=== PATIENT | male | born 1955 | race Caucasian/White ===

== ENCOUNTER 2020-03-14 18:46 | Emergency (ER) | payer BC, SELFPAY ==
--- NOTE | 2020-03-14 | ECG_ITS ---
Test Reason : CHEST PRESSURE Blood Pressure : / mmHG Vent. Rate : 073 BPM Atrial Rate : 073 BPM P-R Int : 164 ms QRS Dur : 098 ms QT Int : 382 ms P-R-T Axes : 035 -15 020 degrees QTc Int : 420 ms Normal sinus rhythm Inferior infarct (cited on or before 26-AUG-2019) Abnormal ECG When compared with ECG of 26-AUG-2019 09:59, Premature ventricular complexes are no longer Present Referred By: Generic ED Physician Electronically Signed By:Jignesh Dunn
[2020-03-14 19:20] VITALS: BP 122/60; PULSE 90; RESP 21; TEMP 37.2; O2SAT 93; BMI 38.7
[2020-03-14 19:30] VITALS: BP 120/60; PULSE 90; RESP 20; TEMP 37.2; O2SAT 93; BMI 43.7
[2020-03-14 20:34] VITALS: PULSE 74; RESP 22; O2SAT 95
[2020-03-14 20:34] LABS: Imm Gran Abs Auto 0.02 X10*3/uL (0.00-0.03); Imm Gran Pct Auto 0.3 % (0.0-0.4); Mean Corpuscular Volume 96.2 fL (80-98); PLT CLUMP 1; Red Cell Distribution Width 13.2 % (11.0-16.0); SCAN SMEAR FLAG 1
[2020-03-14 20:36] LABS: Basophils Percent Auto 0.1 % (0-2); Hematocrit 48.2 % (42-52); Hemoglobin 16.3 g/dl (14.0-18.0); Lymphocytes Absolute Auto 0.8 X10*3/uL (1.2-4.9); Lymphocytes Percent Auto 12.1 % (20-40); MANUAL DIFF FLAG NO; Mean Corpuscular HGB Conc 33.8 g/dl (31.0-36.0); Mean Corpuscular Hemoglobin 32.5 pg (27.0-33.0); Mean Platelet Volume 10.8 fL (9.4-12.4); Monocytes Absolute Auto 0.5 X10*3/uL (0.1-1.2); Neutrophils Absolute Auto 5.4 X10*3/uL (2.0-8.3); Neutrophils Percent Auto 80.5 % (45-73); Platelet Count 134 X10*3/uL (160-400); Red Blood Count 5.01 X10*6/uL (4.60-5.80); White Blood Count 6.7 X10*3/uL (4.8-10.8)
--- NOTE | 2020-03-14 20:36 | PC.NURSE ---
pt placed on tele, nsr 74. Iv access obtained to right outer forarm, labs drawn and sent, provider in to bedside for primary eval. Plan for chest ct. Pt resting quietly at this time, SUNI.
[2020-03-14 21:03] LABS: Alanine Aminotransferase 35 U/L (0-40); Albumin Level 4.3 g/dL (3.5-5.0); Alkaline Phosphatase 86 U/L (39-117); Anion Gap 17 (12-20); Aspartate Amino Transferase 47 U/L (5-37); Bilirubin Total 0.8 mg/dL (0.0-1.0); Blood Urea Nitrogen 31 mg/dL (9-16); Carbon Dioxide 30 mmol/L (22-29); Chloride 94 mmol/L (96-108); Creatinine Clr Calc Pharmacy 123.5; Estimated Glomerular Filt Rate > 60; Glucose Random 87 mg/dL (60-115); Potassium 4.4 mmol/l (3.3-5.1); Sodium 137 mmol/L (135-145); Total Protein 7.2 g/dL (6.5-8.0)
--- NOTE | 2020-03-14 21:05 | ED.SOB ---
HPI - SOB/Dyspnea General Chief Complaint: Dyspnea Stated Complaint: covid symptoms Time Seen by Provider: 03/14/20 19:33 Source: patient Mode of arrival: ambulatory Limitations: no limitations History of Present Illness HPI Narrative: 65-year-old male with past medical history of hypertension, CKD, adrenal adenoma, bilateral knee replacements, hip replacement presents with 9 days of upper respiratory symptoms. States that he feels unwell, has had shortness of breath, cough, fatigue and intermittent fevers and chills. He does not report any chest pain or pressure, but states that when he exerts himself he has palpitations. He denies abdominal abdominal, dysuria, hematuria, and edema. Related Data Home Medications Medication Instructions Recorded Confirmed atenolol 1 tab PO DAILY 03/14/20 03/14/20 cholecalciferol (vitamin D3) 1 tab PO DAILY 03/14/20 03/14/20 ezetimibe 1 tab PO DAILY 03/14/20 03/14/20 hydrochlorothiazide 1 tab PO DAILY 03/14/20 03/14/20 lisinopril 1 tab PO DAILY 03/14/20 03/14/20 pravastatin 1 tab PO DAILY 03/14/20 03/14/20 Previous Rx's Medication Instructions Recorded doxycycline monohydrate 100 mg PO BID 10 Days #20 tab 03/14/20 Allergies Allergy/AdvReac Type Severity Reaction Status Date / Time amoxicillin [AMOXICILLIN] Allergy Unknown UNKNOWN Unverified 03/14/20 19:37 cefazolin [CEFAZOLIN] Allergy Unknown UNKNOWN Unverified 03/14/20 19:37 celecoxib [From CELEBREX] Allergy Unknown UNKNOWN Unverified 03/14/20 19:37 Cephalosporins Allergy Unknown UNKNOWN Unverified 03/14/20 19:37 [CEPHALOSPORINS] enoxaparin [From LOVENOX] Allergy Unknown UNKNOWN Unverified 03/14/20 19:37 rosuvastatin [From CRESTOR] Allergy Unknown UNKNOWN Unverified 03/14/20 19:37 Review of Systems Review of Systems: Constitutional: positive Fever, positive Chills, positive fatigue, positive Malaise ENT/Mouth: No sore throat, no runny nose Eyes: No Discharge Cardiovascular: No Chest Pain, positive SOB Respiratory: Positive Cough, No Sputum, No Wheezing, No Smoke Exposure, No Dyspnea Gastrointestinal: No Nausea, No Vomiting, No Diarrhea Genitourinary: no irregular bleeding, No Dysuria, No Urinary Frequency, No Hematuria, No Urinary Incontinence, No Urgency, No Flank Pain, Musculoskeletal: positive Myalgia Skin: No rash Neuro: No Headache PMF Past Medical History Attestation statement: The following information was validated with the patient. Source: old records reviewed Medical History (Updated 03/14/20 @ 23:45 by Mellisa Ramirez NP) Adrenal adenoma Cardiovascular disease CKD (chronic kidney disease) stage 2, GFR 60-89 ml/min FH: total knee replacement Hypertension Surgical History History of hip replacement Social History Social History Smoking Status: Former smoker Use of substances other than those prescribed or required for medical reasons: No Advance Directives: No Physical Exam Vital Signs: Vital Signs: Last Vital Signs Temp 98.8 F 03/14/20 22:00 Pulse 79 03/14/20 22:00 Resp 16 03/14/20 22:00 BP 118/60 03/14/20 22:00 Pulse Ox 97 03/14/20 22:00 Body Mass Index 43.7 Appearance: Alert. Oriented X3. Mild distress. Eyes: Pupils equal, round and reactive to light. ENT: Pharynx normal. Neck: Normal inspection. Neck supple. CVS: Normal heart rate and rhythm. Pulses normal. Respiratory: No respiratory distress. Lung sounds expiratory wheezing diminished at the bases Abdomen: Soft and nontender. Skin: Skin warm and dry. Normal skin color. Normal skin turgor. Extremities: No lower extremity edema. Neuro: No motor deficit. No sensory deficit. Course Course Course Narrative: 65-year-old male presents with upper respiratory symptoms for approximately 9 days. Plan of care is for CT scan of the chest, CBC, Chem 7, EKG and COVID test First EKG elevated at 21.8 will repeat 2nd in 3 hours. EKG is normal sinus no indication of ST depression or elevation. BUN elevated at 31, patient does state to have chronic kidney disease with elevated BUN and unfortunately we do not have prior lab values. We will not be resuscitating with fluid at this time for suspected of viral illness. At 11:00 p.m. COVID test is positive, CT scan of the chest is positive for bilateral infiltrates consistent with COVID-19. Repeat troponin is 16.2. Highly unlikely that this is ACS. Heart rate 79, O2 sat remains above 95% on room air, low suspicion for PE at this time. Plan of care to discharge with doxycycline and COVID-19 restriction. Patient verbalized understanding of and agrees to plan of care discharge home. MDM - SOB/Dyspnea Differential Diagnosis Differential diagnosis: Likely acute exacerbation of chronic obstructive airways disease and pneumonia Medical Records Attestation: I reviewed the patient's medical records. Lab Data Attestation: I reviewed the patient's lab results. Result diagrams: 03/14/20 20:27 03/14/20 20: Labs: Lab Results 03/14/20 03/14/20 03/14/20 Range/Units 20:27 20: 20: WBC 6.7 (4.8-10.8) X10*3/uL RBC 5.01 (4.60-5.80) X10*6/uL Hgb 16.3 (14.0-18.0) g/dl Hct 48.2 (42-52) % MCV 96.2 (80-98) fL MCH 32.5 (27.0-33.0) pg MCHC 33.8 (31.0-36.0) g/dl RDW 13.2 (11.0-16.0) % Plt Count 134 L (160-400) X10*3/uL MPV 10.8 (9.4-12.4) fL Immature Gran % (Auto) 0.3 (0.0-0.4) % Neut % (Auto) 80.5 H (45-73) % Lymph % (Auto) 12.1 L (20-40) % [place] % (Auto) 7.0 (2-11) % Eos % (Auto) 0.0 (0-4) % Baso % (Auto) 0.1 (0-2) % Lymph # (Auto) 0.8 L (1.2-4.9) X10*3/uL [place] # (Auto) 0.5 (0.1-1.2) X10*3/uL Eos # (Auto) 0.0 (0.0-0.4) X10*3/uL Baso # (Auto) 0.0 (0.0-0.2) X10*3/uL Abs Immat Gran (auto) 0.02 (0.00-0.03) X10*3/uL Absolute Neuts (auto) 5.4 (2.0-8.3) X10*3/uL Absolute Nucleated RBC 0.000 (0.0-0.012) X10*3/uL Nucleated RBC % (auto) 0.0 (0.0-0.2) /100WBC Hold Blue Top SEE NOTE Sodium 137 (135-145) mmol/L Potassium 4.4 (3.3-5.1) mmol/l Chloride 94 L (96-108) mmol/L Carbon Dioxide 30 H (22-29) mmol/L Anion Gap 17 (12-20) BUN 31 H (9-16) mg/dL Creatinine 0.95 (0.5-1.4) mg/dL Estim Creat Clear Calc 123.5 Estimated GFR > 60 Random Glucose 87 (60-115) mg/dL Calcium 9.0 (8.4-10.2) mg/dL Total Bilirubin 0.8 (0.0-1.0) mg/dL AST 47 H (5-37) U/L ALT 35 (0-40) U/L Alkaline Phosphatase 86 (39-117) U/L Troponin I High Sens (<3.5-35.0) ng/L Total Protein 7.2 (6.5-8.0) g/dL Albumin 4.3 (3.5-5.0) g/dL Coronavirus (PCR) (Negative) Influenza Type A (PCR) (Negative) Influenza Type B (PCR) (Negative) RSV RNA Qual (PCR) (Negative) 03/14/20 03/14/20 Range/Units 20:27 22:12 WBC (4.8-10.8) X10*3/uL RBC (4.60-5.80) X10*6/uL Hgb (14.0-18.0) g/dl Hct (42-52) % MCV (80-98) fL MCH (27.0-33.0) pg MCHC (31.0-36.0) g/dl RDW (11.0-16.0) % Plt Count (160-400) X10*3/uL MPV (9.4-12.4) fL Immature Gran % (Auto) (0.0-0.4) % Neut % (Auto) (45-73) % Lymph % (Auto) (20-40) % [place] % (Auto) (2-11) % Eos % (Auto) (0-4) % Baso % (Auto) (0-2) % Lymph # (Auto) (1.2-4.9) X10*3/uL [place] # (Auto) (0.1-1.2) X10*3/uL Eos # (Auto) (0.0-0.4) X10*3/uL Baso # (Auto) (0.0-0.2) X10*3/uL Abs Immat Gran (auto) (0.00-0.03) X10*3/uL Absolute Neuts (auto) (2.0-8.3) X10*3/uL Absolute Nucleated RBC (0.0-0.012) X10*3/uL Nucleated RBC % (auto) (0.0-0.2) /100WBC Hold Blue Top Sodium (135-145) mmol/L Potassium (3.3-5.1) mmol/l Chloride (96-108) mmol/L Carbon Dioxide (22-29) mmol/L Anion Gap (12-20) BUN (9-16) mg/dL Creatinine (0.5-1.4) mg/dL Estim Creat Clear Calc Estimated GFR Random Glucose (60-115) mg/dL Calcium (8.4-10.2) mg/dL Total Bilirubin (0.0-1.0) mg/dL AST (5-37) U/L ALT (0-40) U/L Alkaline Phosphatase (39-117) U/L Troponin I High Sens 21.8 (<3.5-35.0) ng/L Total Protein (6.5-8.0) g/dL Albumin (3.5-5.0) g/dL Coronavirus (PCR) POSITIVE A (Negative) Influenza Type A (PCR) NEGATIVE (Negative) Influenza Type B (PCR) NEGATIVE (Negative) RSV RNA Qual (PCR) NEGATIVE (Negative) Imaging Data CT scan - chest: Attestation: I personally reviewed and interpreted this imaging study as follows: Radiologist's impression: EXAMINATION: CT CHEST WITHOUT CONTRAST CLINICAL INFORMATION: Shortness of breath. COMPARISON: None. TECHNIQUE: Contiguous axial thin section helical images of the chest were performed without contrast. The data set was reformatted in the coronal and sagittal planes and reviewed on an independent workstation. DLP: 590 mGy-cm. FINDINGS: The heart is of normal size. There is no pericardial effusion. There is neither mediastinal, hilar nor axillary lymphadenopathy. There are scattered none pathologically enlarged mediastinal lymph nodes. There are no chest wall masses. Review of lung windows demonstrates that there are neither pleural effusions nor pneumothoraces. Throughout both lungs, there is patchy multifocal groundglass opacification. There are no pulmonary parenchymal nodules. Images of the upper abdomen demonstrate that the liver is of normal size and attenuation without focal lesions. A normal right adrenal gland is identified. 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 Bone windows: Neither sclerotic nor lytic bone lesions are identified. CT/CT chest wo con IMPRESSION: Patchy multifocal groundglass opacification present throughout both lungs. The appearance is nonspecific, though could be sales representative trainee of atypical infection, inflammation or vasculitis. Likely left adrenal adenoma. Automated exposure control (Care Dose) Adjustment of the mA and/or kv according to patient size (this includes techniques or standardized protocols for targeted exams where dose is matched to indication / reason for exam; i.e. extremities or head). ECG Data Attestation: I personally reviewed and interpreted this ECG as follows: ECG interpretation date: 03/14/20 ECG interpretation time: 19:27 Interpretation: Ventricular rate 73 beats per minute, MO 164, QRS 98, QTC 382, QTC 420 normal sinus rhythm no indication of ST elevation or depression. Prior EKG unavailable secondary to system 130 error Discharge Plan Discharge Clinical Impression: COVID-19 Patient Disposition: Home, Self-Care Additional Instructions: You were evaluated for symptoms consistent with COVID-19 and or COVID-19 positive exposure. Please maintain social isolation per State and Federal guidelines. Is your responsibility to maintain these guidelines. Your test results are pending. We will call you with the results. You must treat yourself as if you are positive until your test results come back. Please take doxycycline as directed. This medication is an antibiotic. We are using this medication to prevent your viral pneumonia from COVID-19 from progressing into a bacterial pneumonia. Your CT scan of the chest indicates infiltrates consistent with COVID-19. Incidental findings are an adrenal adenoma which you are aware of. Please continue to follow-up with renal as needed for evaluation of kidney disease and adrenal gland adenoma. Thank you for choosing this emergency department for evaluation. Please follow-up with primary care physician as needed. Return to the emergency department for any new, concerning, or worsening symptoms. Prescriptions: New doxycycline monohydrate 100 mg tablet 100 mg PO BID 10 Days Qty: 20 RF: 0 No Action pravastatin 40 mg tablet 1 tab PO DAILY RF: 0 lisinopril 20 mg tablet 1 tab PO DAILY RF: 0 atenolol 25 mg tablet 1 tab PO DAILY RF: 0 hydrochlorothiazide 25 mg tablet 1 tab PO DAILY RF: 0 cholecalciferol (vitamin D3) 125 mcg (5,000 unit) capsule 1 tab PO DAILY RF: 0 ezetimibe 10 mg tablet 1 tab PO DAILY RF: 0
[2020-03-14 21:09] LABS: Troponin-I High Sensitivity 21.8 ng/L (<3.5-35.0)
[2020-03-14 22:00] VITALS: BP 118/60; PULSE 79; RESP 16; TEMP 37.1; O2SAT 97
[2020-03-14 22:57] LABS: Influenza A PCR NEGATIVE (Negative); Influenza B PCR NEGATIVE (Negative); Resp Syncy Virus RNA Qual PCR NEGATIVE (Negative)
[2020-03-14 23:05] LABS: SARS COV2 PCR INHOUSE POSITIVE (Negative)
[2020-03-14 23:39] LABS: Troponin-I High Sensitivity 16.2 ng/L (<3.5-35.0)
== END 2020-03-15 00:02 | disposition home or self-care (01) ==
PROVIDERS: Nurse Practitioner Family; Emergency Provider Emergency Medicine Emergency Medical Services; PCP Internal Medicine
DX: U07.1 COVID-19 (principal); I12.9 Hypertensive chronic kidney disease with stage 1 through stage 4 chronic kidney disease, or unspecified chronic kidney disease; N18.2 Chronic kidney disease, stage 2 (mild); Z87.891 Personal history of nicotine dependence
CPT/HCPCS: 0241U; 36415; 71250; 80053; 84484; 85025; 93005; 96360; 99284

== ENCOUNTER 2021-06-05 13:30 | Outpatient (RCR) | payer MEDICARE, SELFPAY | END 2021-10-26 09:03 | disposition home or self-care (01) | LOC: HO.WCC 13:30 | PROVIDERS: PCP Internal Medicine; Visit Provider Physician Assistant | DX: I87.311 Chronic venous hypertension (idiopathic) with ulcer of right lower extremity (principal); L97.812 Non-pressure chronic ulcer of other part of right lower leg with fat layer exposed; L97.822 Non-pressure chronic ulcer of other part of left lower leg with fat layer exposed; I73.9 Peripheral vascular disease, unspecified; I11.0 Hypertensive heart disease with heart failure; I50.9 Heart failure, unspecified; Z87.891 Personal history of nicotine dependence | CPT/HCPCS: 10120; 11042; 97597; 99213; 99214; 99215 ==